=== PATIENT | female | born 1955 | race Caucasian/White ===

== ENCOUNTER → 2016-06-08 | Outpatient (CLI) | payer OTHER | END | disposition home or self-care (01) | LOC: CFH 09:15 | PROVIDERS: ATTEND Nurse Practitioner Gerontology | DX: Z12.31 Encounter for screening mammogram for malignant neoplasm of breast (principal) | CPT/HCPCS: G0202 ==

== ENCOUNTER → 2017-06-12 | Outpatient (CLI) | payer OTHER | END | disposition home or self-care (01) | LOC: CFH 13:50 | PROVIDERS: ATTEND Nurse Practitioner Gerontology | DX: Z12.31 Encounter for screening mammogram for malignant neoplasm of breast (principal) | CPT/HCPCS: 77063; 77067 ==

== ENCOUNTER 2018-01-25 17:35 | Emergency (ER) | payer OTHER ==
[~2018-01-25] VITALS: Ht 152.4 cm; Wt 78.0 kg
[2018-01-25] MEDS ORDERED: LOSA25TA6 PO (18:04)
[2018-01-25] MEDS ORDERED: EZET10TA18 PO (18:04)
[2018-01-25] MEDS ORDERED: DEXL30CA2 PO (18:04)
[2018-01-25] MEDS ORDERED: ATEN25TA PO (18:04)
[2018-01-25] MEDS ORDERED: KETOROLAC 30 MG/1 ML ONE (18:29)
[2018-01-25] MEDS ORDERED: SODIUM CHLORIDE FLUSH 10ML SYR IVF ONE (18:30)
[2018-01-25] MEDS ORDERED: KETOROLAC 30 MG/1 ML IVPush ONE (18:30)
[2018-01-25 18:48] LABS: BASOPHILS # (AUTO) 0.05 x10^3/uL (0-0.1); BASOPHILS % (AUTO) 0 % (0-1); EOSINOPHILS # (AUTO) 0.15 x10^3/uL (0-0.4); EOSINOPHILS % (AUTO) 1 % (1-7); LYMPHOCYTES # (AUTO) 2.02 x10^3/uL (1-3.4); LYMPHOCYTES % (AUTO) 18 % (22-44); MD NO; MEAN CORPUSCULAR HEMOGLOBIN 30.6 pg (27.0-34.8); MEAN CORPUSCULAR HGB CONC 34.7 g/dL (32.4-35.8); MEAN CORPUSCULAR VOLUME 88.3 fL (80-100); MONOCYTES # (AUTO) 0.62 x10^3/uL (0.2-0.8); MONOCYTES % (AUTO) 6 % (2-9); NEUTROPHILS # (AUTO) 8.28 x10^3/uL (1.8-6.8); NEUTROPHILS % (AUTO) 75 % (42-75); PLATELET COUNT 290 x10^3/uL (130-400); RED BLOOD COUNT 4.24 x10^6/uL (3.82-5.3); RED CELL DISTRIBUTION WIDTH 13.5 % (9.6-15.2)
[2018-01-25 18:57] LABS: ALBUMIN 3.6 g/dL (3.4-5.0); ANION GAP 11 mmol/L (5-15); CALCIUM 8.8 mg/dL (8.5-10.1); CHLORIDE 109 mmol/L (98-107); CREATININE 0.88 mg/dL (0.55-1.02)
[2018-01-25 19:01] LABS: TROPONIN I < 0.015 ng/mL (0.000-0.045)
[2018-01-25] MEDS ORDERED: DIPHENHYDRAMINE 50 MG/ML, 1ML ONE (19:24)
[2018-01-25] MEDS ORDERED: DIPHENHYDRAMINE 50 MG/ML, 1ML IVPush ONE (19:30)
[2018-01-25] MEDS ORDERED: OMNIPAQUE 350 MG/ML, 100ML BOTTLE ONE (20:00)
[2018-01-25 20:54] VITALS: BP 144/56
== END 2018-01-25 20:56 | disposition home or self-care (01) ==
LOC: ED 20:05
DX: M94.0 Chondrocostal junction syndrome [Tietze] (principal); R07.2 Precordial pain; M19.90 Unspecified osteoarthritis, unspecified site; G43.909 Migraine, unspecified, not intractable, without status migrainosus; R61 Generalized hyperhidrosis; Z87.19 Personal history of other diseases of the digestive system
CPT/HCPCS: 36415; 71045; 71275; 80048; 82040; 83880; 84484; 85025; 85379; 93005; 96374; 96375; 99284; J1200; J1885; Q9967

== ENCOUNTER → 2019-10-28 | Outpatient (CLI) | payer BC ==
[~2019-10-28] MED LIST: ATEN25TA PO; DEXL30CA2 PO; EZET10TA70 PO; LOSA25TA25 PO
== END | disposition home or self-care (01) ==
LOC: CFH 09:59
PROVIDERS: ATTEND Obstetrics & Gynecology Female Pelvic Medicine and Reconstructive Surgery
DX: Z12.31 Encounter for screening mammogram for malignant neoplasm of breast (principal)
CPT/HCPCS: 77063; 77067